=== PATIENT | male | born 2000 | race Caucasian/White ===

== ENCOUNTER 2023-02-06 20:17 | Emergency (ER) | payer BC, SELFPAY ==
[2023-02-06] MEDS ORDERED: Rabies Vaccine Human 2.5 UNITS VIAL ONE (20:46)
[2023-02-06] MEDS ORDERED: Bacitracin 1 PK ONE (20:46)
[2023-02-06] MEDS ORDERED: Amoxicillin/Potassium Clav 875 MG TAB ONE (20:54)
== END 2023-02-06 21:20 | disposition home or self-care (01) ==
LOC: NAV ERS 20:17
DX: S61.250A Open bite of right index finger without damage to nail, initial encounter (principal); W55.01XA Bitten by cat, initial encounter; Z23 Encounter for immunization
CPT/HCPCS: 90471; 90675

== ENCOUNTER 2023-02-10 08:19 | Emergency (ER) | payer BC ==
[2023-02-10] MEDS ORDERED: Rabies Vaccine Human 2.5 UNITS VIAL ONE (08:25)
== END 2023-02-10 08:35 | disposition home or self-care (01) ==
LOC: NAV ERS 08:19
DX: Z23 Encounter for immunization (principal)
CPT/HCPCS: 90471; 90675